=== PATIENT | female | born 1955 | race Caucasian/White ===

== ENCOUNTER 2020-06-25 16:39 | Emergency (ER) | payer OTHER ==
[~2020-06-25] VITALS: Ht 162.6 cm; Wt 95.2 kg
== END 2020-06-25 18:07 | disposition left against medical advice (07) ==
LOC: ER 16:39
DX: R42 Dizziness and giddiness (principal); M79.661 Pain in right lower leg; Z53.21 Procedure and treatment not carried out due to patient leaving prior to being seen by health care provider
CPT/HCPCS: 82947; 93005; 93010; 93971; 99284-25

== ENCOUNTER 2020-07-02 05:34 | Emergency (ER) | payer OTHER ==
[~2020-07-02] VITALS: Ht 162.6 cm; Wt 90.7 kg
[2020-07-02] MEDS ORDERED: LOSA25 PO (05:45)
[2020-07-02] MEDS ORDERED: METF500 PO (05:46)
[2020-07-02] MEDS ORDERED: LEVSOD88 PO (05:46)
[2020-07-02] MEDS ORDERED: IBUP600 PO (05:47)
[2020-07-02] MEDS ORDERED: Voltaren100 GM TOP (07:46)
[2020-07-02] MEDS ORDERED: Crutch1 EACH XX (08:23)
== END 2020-07-02 08:52 | disposition home or self-care (01) ==
LOC: ER 05:34
DX: M25.561 Pain in right knee (principal); Z79.84 Long term (current) use of oral hypoglycemic drugs; Z79.899 Other long term (current) drug therapy
CPT/HCPCS: 29505; 36415; 73562-RT; 99283-25; A9270